=== PATIENT | male | born 1965 | race Caucasian/White ===

== ENCOUNTER 2019-04-21 19:54 | Emergency (ER) | payer OTHER ==
[~2019-04-21] VITALS: Ht 180.3 cm; Wt 86.4 kg
[2019-04-21 19:59] VITALS: Ht 180.3 cm; Wt 86.4 kg
[2019-04-21] MEDS ORDERED: OMEPRAZOLE20 M1 PO (20:01)
[2019-04-21] MEDS ORDERED: LISINOPRIL5 MG PO (20:01)
[2019-04-21] MEDS ORDERED: LIPITOR10 MG PO (20:02)
[2019-04-21] MEDS ORDERED: METOPROLOL TART50 MG PO (20:02)
[2019-04-21 20:24] LABS: BASOPHILS 0.5 % (0-2); EOSINOPHILS 2.9 % (0-7); HEMATOCRIT 42.2 % (42.0-54.0); HEMOGLOBIN 14.3 g/dL (13.5-17.5); IMMATURE GRANULOCYTES 0.1 % (0-5); LYMPHOCYTES 20.9 % (15-50); MCH 31.1 pg (26.0-34.0); MCHC 33.9 g/dL (31.0-37.0); MCV 91.7 fL (80.0-100.0); MEAN PLATELET VOLUME 9.4 fL (7.4-10.4); MONOCYTES 10.5 % (2-11); NEUTROPHILS 65.1 % (40-80); PLATELET COUNT 253 10x3/uL (130-400); RDW 12.7 % (11.5-14.5); WBC 10.5 10x3/uL (4.8-10.8)
[2019-04-21 20:34] LABS: CALC OSMOLALITY 275 mosm/kg (275-300); CALCIUM 8.6 mg/dL (8.5-10.1); CARBON DIOXIDE 29.9 mmol/L (21.0-32.0); CHLORIDE - SERUM 103 mmol/L (98-107); GLUCOSE 99 mg/dL (74-106); INR 1.14 (0.85-1.17); POTASSIUM - SERUM 3.9 mmol/L (3.5-5.1); PROTIME 14.1 SECONDS (11.6-15.0); SODIUM 139 mmol/L (136-145); UREA NITROGEN 8 mg/dL (7-18); eGFR NON AFRICAN AMERICAN 83 mL/min (90-120)
[2019-04-21 20:50] LABS: ALBUMIN 3.7 g/dL (3.4-5.0); ALKALINE PHOSPHATASE 62 U/L (46-116); BILIRUBIN - TOTAL 0.29 mg/dL (0.2-1.3); CKMB 0.8 U/L (0.0-3.6); CREATINE KINASE 122 UL (21-232); MAGNESIUM - SERUM 2.1 mg/dL (1.8-2.4); PROTEIN - SERUM 7.3 g/dL (6.4-8.2)
[2019-04-21 20:51] LABS: TROPONIN-I < 0.017 ng/mL (0.000-0.060)
[2019-04-21 21:04] LABS: ALT (SGPT) 26 U/L (10-68)
[2019-04-21 22:11] VITALS: BP 138/81
== END 2019-04-21 22:11 | disposition home or self-care (01) ==
LOC: D.ER 19:54
PROVIDERS: Emergency Medicine
DX: K21.9 Gastro-esophageal reflux disease without esophagitis (principal); R07.89 Other chest pain; I10 Essential (primary) hypertension; E78.5 Hyperlipidemia, unspecified; Z72.0 Tobacco use